=== PATIENT | male | born 1980 | race Two or more races ===

== ENCOUNTER 2017-01-19 02:40 | Emergency (ER) | payer OTHER ==
--- NOTE | 2017-01-19 03:16 | ED PDOC ---
HPI: Psych/Substance Abuse <AdeDejuan F - Last Filed: 01/19/17 08:15> Chief Complaint (Provider): Alcohol ingestion History/Exam Limitations: no limitations Current Symptoms Are (Timing): Still Present Modifying Factor(s): Alcohol Additional Complaint(s): The pt is a 36yo male, offers no past medical history, is brought to the ED by EMS for evaluation s/p finding the pt intoxicated outside a diner. Pt admits to drinking alcohol tonight but offers no additional medical complaints. <Jaqueline Leach A - Last Filed: 01/20/17 15:44> Time Seen by Provider: 01/19/17 02:58 Chief Complaint (Nursing): Alcohol Ingestion Past Medical History Vital Signs: Last Vital Signs Temp 98.4 F 01/19/17 07:46 Pulse 97 H 01/19/17 07:46 Resp 16 01/19/17 07:46 BP 102/57 L 01/19/17 07:46 Pulse Ox 96 01/19/17 07:46 <AdeDejuan F - Last Filed: 01/19/17 08:15> Reviewed: Historical Data, Nursing Documentation, Vital Signs Vital Signs: Last Vital Signs Temp 97 F L 01/19/17 02:58 Pulse 84 01/19/17 02:58 Resp 17 01/19/17 02:58 BP 134/77 01/19/17 02:58 Pulse Ox 97 01/19/17 02:58 - Medical History PMH: No Chronic Diseases - Surgical History Surgical History: No Surg Hx - Family History Family History: States: Unknown Family Hx <Jaqueline Leach A - Last Filed: 01/20/17 15:44> - Allergies Allergies/Adverse Reactions: Allergies Allergy/AdvReac Type Severity Reaction Status Date / Time No Known Allergies Allergy Verified 01/19/17 03:12 Review of Systems ROS Statement: Except As Marked, All Systems Reviewed And Found Negative Psych: Positive for: Other (alcohol use) <Jaqueline Leach - Last Filed: 01/20/17 15:44> Physical Exam - Reviewed Nursing Documentation Reviewed: Yes Vital Signs Reviewed: Yes - Physical Exam Appears: Positive for: Well, Non-toxic, No Acute Distress Head Exam: Positive for: ATRAUMATIC, NORMAL INSPECTION, NORMOCEPHALIC Skin: Positive for: Normal Color, Warm, DRY Eye Exam: Positive for: Normal appearance Cardiovascular/Chest: Positive for: Regular Rate, Rhythm Respiratory: Positive for: Normal Breath Sounds. Negative for: Respiratory Distress Neurologic/Psych: Positive for: Alert, Oriented, Mood/Affect (slurred speech), Gait (unsteady gait), Other (Acohol use) <Jaqueline Leach - Last Filed: 01/20/17 15:44> - Progress Re-evaluation Time: 08:16 Condition: Improved (awake alert no focal neuro deficits) <Dejuan Booker - Last Filed: 01/19/17 08:15> - ECG O2 Sat by Pulse Oximetry: 97 <Jaqueline Leach - Last Filed: 01/20/17 15:44> Medical Decision Making Medical Decision Making: Time: 0313 Impression: Alcohol intoxication Plan: -- Alcohol serum --Reassess Scribe Attestation: Documented by Ivania Aviles acting as a scribe for Jaqueline Leach MD. Provider Attestation: All medical record entries made by the Scribe were at my direction and personally dictated by me. I have reviewed the chart and agree that the record accurately reflects my personal performance of the history, physical exam, medical decision making, and the department course for this patient. I have also personally directed, reviewed, and agree with the discharge instructions and disposition. <Jaqueline Leach - Last Filed: 01/20/17 15:44> Disposition - Patient ED Disposition Is Patient to be Admitted: No - Disposition Disposition: Routine/Home Disposition Time: 08:16 <Dejuan Booker - Last Filed: 01/19/17 08:15> <Jaqueline Leach - Last Filed: 01/20/17 15:44> - Clinical Impression Clinical Impression: Alcohol abuse with uncomplicated intoxication - Disposition Referrals: [facility] [Outside] Condition: [facility]IR Instructions: Alcohol Intoxication (ED)
[2017-01-19 07:47] VITALS: BP 102/57; PULSE 97; RESP 16; TEMP 98.4
[2017-01-20 15:44] VITALS: O2SAT 97
== END 2017-01-19 09:43 | disposition home or self-care (01) ==
LOC: H.ER 02:40
DX: F10.129 Alcohol abuse with intoxication, unspecified (principal)